=== PATIENT | female | born 1980 | race Caucasian/White ===

== ENCOUNTER 2020-05-29 08:48 | Outpatient (CLI) | payer OTHER, SELFPAY ==
--- NOTE | 2020-05-29 08:59 | MM_ITS ---
WS: [id number] BILATERAL DIGITAL SCREENING MAMMOGRAM WITH CAD CLINICAL INFORMATION: SCREENING HISTORY: Screening mammogram. No current complaints. COMPARISON: TECHNIQUE: Bilateral CC and MLO. FINDINGS: Bilateral breast implants. The breast are composed of extremely dense tissue, which can limit the detection of small underlying mass lesions. Previously described superficial nodule in the anterior right breast appears smaller to day measuring 6 mm compared to 2019. No suspicious focal mass, asymmetry, calcifications, or architec tural distortion. No evidence of malignancy. MM/[id number] IMPRESSION: BI-RADS: 2-Benign FOLLOW UP: 1 Year Follow-up Recommend return to annual screening mammography.
== END 2020-05-29 08:49 | disposition home or self-care (01) ==
LOC: RADSHAW 08:50
PROVIDERS: Visit Provider Nurse Practitioner Family
DX: Z12.31 Encounter for screening mammogram for malignant neoplasm of breast (principal)
CPT/HCPCS: 77067

== ENCOUNTER 2022-06-19 10:16 | Outpatient (CLI) | payer SELFPAY ==
--- NOTE | 2022-06-19 10:33 | MM_ITS ---
WS: [id number] BILATERAL SCREENING DIGITAL BREAST MAMMOGRAPHY WITH KRISTOPHER DISPLACEMENT VIEWS. CAD PERFORMED. HISTORY: SCREENING COMPARISON: 05/29/2021 and 01/25/2019 Bilateral craniocaudal and mediolateral oblique views are performed with tomosynthesis and SM. Kristopher displacement views in CC and MLO projection also performed. Breasts composition: The breasts are heterogeneously dense, which may obscure small masses. Deformit y of the breast implants is mildly progressed over the last several examinations. There is no complet e collapse. There is partial infolding of the implants. The adjacent fibroglandular soft tissues are normal. No suspicious mass or calcification. MM/[id number] IMPRESSION: BI-RADS: 2-Benign FOLLOW-UP: 1 Year Follow-up
== END 2022-06-19 10:17 | disposition home or self-care (01) ==
PROVIDERS: PCP Nurse Practitioner Family; Visit Provider Nurse Practitioner Family
DX: Z12.31 Encounter for screening mammogram for malignant neoplasm of breast (principal)
CPT/HCPCS: 77063; 77067